=== PATIENT | female | born 1995 | race Hispanic/Latino ===

== ENCOUNTER 2024-04-29 08:47 | Inpatient (IN) | payer BC, SELFPAY ==
[2024-04-29] VITALS (36 sets, daily range): BP systolic 110–164; BP diastolic 55–118; PULSE 78–113; RESP 14–18; TEMP 36.2–37.1; O2SAT 92–100; BMI 34.3
[2024-04-29 08:37] LABS: ROM Internal Control Test YES-OK TO RESULT pt. (Internal QC)
[2024-04-29 08:40] LABS: ROM Patient Test POSITIVE (Negative); Record Kit Lot#, ROM+ K1866
[2024-04-29] MEDS: Lactated Ringers 1,000 ML 50 ML IV (09:20)
[2024-04-29 09:38] LABS: Absolute Lymphocyte Count 2.12 X10^3/uL (0.83-4.51); Absolute Neutrophil Count 11.2 X10^3/uL (2.0-7.7); Basophil# 0.06 X10^3/uL; Basophil% 0.4 % (0-1); Eosinophil# 0.08 X10^3/uL; Eosinophils% 0.5 % (0-5); Hematocrit 40.4 % (37-47); Hemoglobin 13.6 g/dL (12.0-15.0); Lymphocyte # 2.12 X10^3/ul (0.83-4.51); Lymphocyte % 14.5 % (19-41); Mean Corp Hgb Conc 33.7 g/dL (32-36); Mean Corpuscular Volume 89.2 fL (81-99); Mean Platelet Vol. 10.6 fl (6.2-12.0); Monocyte# 1.04 X10^3/uL; Monocyte% 7.1 % (0-10); NRBC Flagged by Analyzer 0 % (0-5); Neutrophil # 11.15 X10^3/uL (2.7-7.7); Neutrophil % 76.4 % (47-70); Platelet Count 236 K/mm3 (150-450); RBC Distribution Width CV 13.5 % (11.6-14.6); RBC Distribution Width SD 43.9 fl (35.1-43.9); Red Blood Count 4.53 M/mm3 (4.2-5.4); White Blood Count 14.6 K/mm3 (4.4-11.0)
--- NOTE | 2024-04-29 09:38 | PCM.HP.OB ---
HPI - General General Date of Admission: 04/29/24 HPI Narrative MADHURI OTTO, is a 29 F who presents at 40w3d with SROM in active labor. Maternal Data Information [facility] Calculator Estimated Delivery Date Method Current WG Current Estimate 04/26/24 Manual 40w 3d PFSH PFSH Home Medications ?Medication ?Instructions ?Recorded ?Last Taken ?Type aspirin 81 mg tablet,delayed 81 mg PO DAILY 04/29/24 04/28/24 08:00 History release (Adult Low Dose Aspirin) 81 mg vits no.130-ferrous fum 1 tab PO DAILY 04/29/24 04/28/24 08:00 History 27 mg iron-folic acid 800 mcg 1 TAB tablet ( Vitamin) Allergy/AdvReac Type Severity Reaction Status Date / Time No Known Allergies Allergy Verified 04/29/24 08:04 Social History Smoking Status: Never smoker History Elective abortions Hx Para 0 Spontaneous abortions Hx # Term Pregnancies Ectopic pregnancies Hx # Pregnancies Multiple births # of living children NST FHR Rate Baby A Baseline: 130 Variability:: Moderate Accelerations:: 15 x 15 Decelerations:: None FHR Category:: Category I Uterine Activity:: Every 2-3 minutes ROS Constitutional Constitutional: Reports systems reviewed and no addt'l complaints, except as documented; Denies headache(s) Eyes Eyes: Denies acute decrease in peripheral vision, blurry vision or change in vision ENT HEENT: Reports systems reviewed and no addt'l complaints, except as documented Cardiovascular Cardiovascular: Denies chest pain or dizziness Respiratory/Chest Respiratory/Chest: Denies cough, dyspnea, dyspnea on exertion, shortness of breath at rest or shortness of breath with exertion Gastrointestinal Gastrointestinal: Denies abdominal pain, diarrhea, nausea or vomiting Genitourinary Genitourinary: Denies abdominal discomfort Musculoskeletal Musculoskeletal: Denies limited range of motion Integumentary Integumentary: Reports systems reviewed and no addt'l complaints, except as documented Neurologic Neurologic: Reports systems reviewed and no addt'l complaints, except as documented Psychiatric Psychiatric: Reports systems reviewed and no addt'l complaints, except as documented Endocrine Endocrinology: Reports systems reviewed and no addt'l complaints, except as documented Hematologic/Lymphatic Hematologic/Lymphatic: Reports systems reviewed and no addt'l complaints, except as documented Allergic/Immunologic Allergic/Immunologic: Reports systems reviewed and no addt'l complaints, except as documented Vital Signs Vital Signs Vital Signs: 04/29/24 08:12 04/29/24 08:12 04/29/24 08:12 Temperature Temperature Source Temporal Pulse Rate 90 Respiratory Rate Blood Pressure 121/78 H BP Systolic 121 BP Diastolic 78 04/29/24 08:12 04/29/24 08:12 Temperature 97.6 F L Temperature Source Pulse Rate Respiratory Rate 18 Blood Pressure BP Systolic BP Diastolic Weight Weight: 199 lb 15.348 oz Body Mass Index (BMI) 34.3 Physical Exam Const alert and oriented x3 General Appearance: cooperative Orientation / Consciousness: awake, oriented to person, oriented to place and oriented to time Exam Limitations: no limitations HEENT normocephalic Head and Scalp: normal to inspection, normocephalic and atraumatic Face and Sinus: normal facial exam Eyes General Eye: normal appearance of both eyes Neck full ROM Chest Chest: symmetrical chest wall rise Resp normal respiratory effort and normal air movement Auscultation: clear to auscultation bilaterally Cardio regular rate, regular rhythm, S1 normal heart sound, S2 normal heart sound, no murmurs, no rub, no gallops and no clicks GI normal to inspection, nondistended, normoactive bowel sounds and non-tender appearance of the vagina normal Narrative: 4/70/-1, AROM forebag small amount of clear fluid Bladder / Kidney Exam: no CVA tenderness Back/Spine normal ROM Extremity normal to inspection and full ROM Skin no rashes or lesions noted Neuro oriented x3, CN's II-XII intact bilaterally and moves all extremities Sensorium / Orientation: awake, alert and oriented to person Motor Exam: clonus absent Deep Tendon Reflexes: Rt Patellar (L4): 2+ and Lt Patellar (L4): 2+ Labs Labs Labs: Blood Type B POSITIVE Antibody Screen NEGATIVE Hct 40.4 % (37-47) Hgb 13.6 g/dL (12.0-15.0) Syphilis Total Ab Non-reactive GBS negative RPR nonreactive HIV negative HepC negative HBsAG negative Rubella immune B positive GC/CT negative Assessment & Plan (1) SROM (spontaneous rupture of membranes): (2) 40 weeks gestation of : (3) Active labor at term: (4) Language barrier: PLAN: Plan 1) Admit to labor and delivery 2) Routine labs 3) Continuous EFM 4) Pain management upon request 5) collaborative physician and notified of patient status, above assessment, and plan.
[2024-04-29] MEDS: fentaNYL 100 MCG/2 ML Ampul IV (10:21)
[2024-04-29 10:52] LABS: Syphilis Antibodies Non-reactive
[2024-04-29] MEDS: fentaNYL-bupivacaine (epidural) 100 ML BAG EPIDURAL ×2 (16:01→20:26)
[2024-04-29] MEDS: Lactated Ringers 1,000 ML 200 ML IV ×2 (16:06→20:43)
[2024-04-29] MEDS: Oxytocin 15 Units/NS 250ml 15 UNITS/250 ML IV.SOLN 2 UNITS IV (21:25)
[2024-04-29] MEDS: Acetaminophen 500 MG Tablet PO (21:35)
[2024-04-30] VITALS (47 sets, daily range): BP systolic 105–166; BP diastolic 55–84; PULSE 91–121; RESP 16–18; TEMP 36.4–37.2; O2SAT 96–100
[2024-04-30] MEDS: fentaNYL-bupivacaine (epidural) 100 ML BAG EPIDURAL (01:13)
--- NOTE | 2024-04-30 02:54 | EX.PCM.OBRPT ---
Assessment & Plan (1) Language barrier: (2) Vaginal delivery: (3) First degree perineal laceration: (4) Lactating mother: Maternal Data Information KYAW Calculator Estimated Delivery Date Method Current WG Current Estimate 04/26/24 Manual 40w 4d Vaginal Delivery Maternal Presentation Maternal Presentation: Active Labor and Spontaneous Rupture of Membranes Operative Information Date of Procedure: 04/30/24 Pre-Operative Diagnosis: SROM, active labor at term Post-Operative Diagnosis: , first degree perineal laceration Surgery / Procedure Performed: Spontaneous Vaginal Delivery Type of Anesthesia: Epidural Estimated Blood Loss: 400ml Time of Delivery: 02:18 Findings Description of Procedure: Progressed to complete with urge to push. Epidural for pain management. of viable female over first degree perineal laceration.APGARS 8,9 respectively. Infant head delivered with body immediately forthcoming. Placed on maternal abdomen, strong cry. Mouth and nares suctioned for secretions. Pitocin started for active 3rd stage management. Cord doubly clamped and cut by FOB after pulsations ceased, delayed cord clamping. Placenta delivered intact via dillon, 3 vessel cord intact. Perineum inspected and revealed 1st degree perineal laceration. Repaired with 3.0 vicryl rapide and epidural. Fundus firm and hemostasis achieved. EBL 400ml. Mom and baby stable, planning to breastfeed. Family bonding well. notified of delivery. Presentation: Vertex and JUNE Amniotic Membrane Rupture Type: Spontaneous Amniotic Fluid Description: Clear Placental Delivery Description: Spontaneous and Manual Removal (Placenta present through cervical os into vagina, not fully forthcoming. Manual removal of remainder of placenta) Placenta Disposition: [facility] Cord Vessel Description: 3 Vessels Cord Entanglement: None Cord Gases: ABG and VBG A Gender: Female (1 minute): 8 (5 minute): 9 Delayed Cord Clamping: Yes Post Vaginal Delivery Medications Given After Delivery: IV Pitocin Episiotomy Description: None Laceration: Perineal Extension/lac and 1st degree Complication Complications: None
[2024-04-30] MEDS: Oxytocin 15 Units/NS 250ml 15 UNITS/250 ML IV.SOLN 83 UNITS IV (03:01)
[2024-04-30] MEDS: Methylergonovine 0.2 MG/ML Ampul IM (04:04)
[2024-04-30] MEDS: 0.9% Saline Lock 10 ML Syringe IV (06:07)
[2024-04-30] MEDS: Ibuprofen 600 MG Tablet PO ×2 (15:37→23:14)
[2024-05-01] VITALS (9 sets, daily range): BP systolic 115–137; BP diastolic 63–72; PULSE 84–96; RESP 16; TEMP 36.4–36.6; O2SAT 99
[2024-05-01 06:06] LABS: Absolute Lymphocyte Count 3.44 X10^3/uL (0.83-4.51); Absolute Neutrophil Count 11.6 X10^3/uL (2.0-7.7); Basophil# 0.09 X10^3/uL; Basophil% 0.5 % (0-1); Eosinophil# 0.22 X10^3/uL; Eosinophils% 1.3 % (0-5); Hematocrit 33.9 % (37-47); Hemoglobin 10.9 g/dL (12.0-15.0); Lymphocyte # 3.44 X10^3/ul (0.83-4.51); Lymphocyte % 20.6 % (19-41); Mean Corp Hgb Conc 32.2 g/dL (32-36); Mean Corpuscular Hgb 29.5 pg (27.0-32.0); Mean Corpuscular Volume 91.6 fL (81-99); Mean Platelet Vol. 10.8 fl (6.2-12.0); Monocyte# 1.08 X10^3/uL; Monocyte% 6.5 % (0-10); NRBC Flagged by Analyzer 0 % (0-5); Neutrophil # 11.62 X10^3/uL (2.7-7.7); Neutrophil % 69.8 % (47-70); Platelet Count 219 K/mm3 (150-450); RBC Distribution Width CV 14.1 % (11.6-14.6); White Blood Count 16.7 K/mm3 (4.4-11.0)
[2024-05-01] MEDS: Ibuprofen 600 MG Tablet PO ×2 (07:47→14:24)
--- NOTE | 2024-05-01 08:49 | PN.OBGYN_ITS ---
Subjective Subjective Some pain in her neck from pushing. Average lochia. No other complaints this morning. Objective Data Objective Data Vital Signs: Vital Signs Temp Pulse Resp BP Pulse Ox O2 Del Method 97.6 F L 96 16 115/66 99 Room Air 05/01/24 08:38 05/01/24 08:38 05/01/24 08:38 05/01/24 08:38 04/30/24 15:30 05/01/24 04:57 Oxygen Delivery Method Room Air Weight: 90.7 kg Body Mass Index (BMI) 34.3 Intake & Output: Intake and Output for Last 24 Hours 04/29/24 04/30/24 05/01/24 23:59 23:59 23:59 Intake Total 2424.60 / 2424.60 1427.67 / 1427.67 Output Total 200 / 200 3000 / 3000 Balance 2224.60 / 2224.60 -1572.33 / -1572.33 Lab / Micro Data 05/01/24 05:50 Labs: Laboratory Results - last 24 hr 05/01/24 05:50: WBC 16.7 H, RBC 3.70 L, Hgb 10.9 L, Hct 33.9 L, MCV 91.6, MCH 29.5, MCHC 32.2, RDW Std Deviation 47.0 H, RDW Coeff of Tasha 14.1, Plt Count 219, MPV 10.8, Immature Gran % (Auto) 1.300 H, Neut % (Auto) 69.8, Lymph % (Auto) 20.6, [place] % (Auto) 6.5, Eos % (Auto) 1.3, Baso % (Auto) 0.5, Absolute Neuts (auto) 11.6 H, Absolute Lymphs (auto) 3.44, Nucleated RBC % 0 Physical Exam Const alert and no apparent distress Narrative: Fundus firm, below umbilicus. Assessment & Plan (1) Vaginal delivery: PLAN: day #1 status post vaginal delivery. Patient and are doing well. Likely discharge home tomorrow.
[2024-05-01] MEDS: Acetaminophen 500 MG Tablet 1000 MG PO ×2 (12:03→23:40)
[2024-05-01] MEDS: Senna/Docusate Sodium 1 Tablet PO (14:25)
[2024-05-01] MEDS: cycloBENZAPRine HCl 5 MG TABLET PO ×2 (15:10→23:40)
[2024-05-02] MEDS: Ibuprofen 600 MG Tablet PO ×2 (01:55→08:52)
[2024-05-02 02:02] VITALS: BP 118/68; PULSE 84; RESP 16; TEMP 36.6; O2SAT 100
[2024-05-02 02:04] VITALS: BP 118/68; PULSE 88
[2024-05-02] MEDS: cycloBENZAPRine HCl 5 MG TABLET PO (08:51)
--- NOTE | 2024-05-02 09:07 | PCM.PN.OB ---
Subjective Subjective She reports stable neck pain. Objective Data Objective Data Vital Signs: Vital Signs Temp Pulse Resp BP Pulse Ox O2 Del Method 98 F 88 16 118/68 100 Room Air 05/02/24 02:02 05/02/24 02:04 05/02/24 02:02 05/02/24 02:04 05/02/24 02:02 05/02/24 02:02 Oxygen Delivery Method Room Air Weight: 199 lb 15.348 oz Body Mass Index (BMI) 34.3 Intake & Output: Intake and Output for Last 24 Hours 04/30/24 05/01/24 05/02/24 23:59 23:59 23:59 Intake Total 1427.67 / 1427.67 Output Total 3000 / 3000 Balance -1572.33 / -1572.33 Lab / Micro Data 05/01/24 05:50 Physical Exam Const alert, oriented x3 and no apparent distress HEENT normocephalic GI soft to palpation, non-tender and non-distended GI Narrative: fundus firm, mid & below umbilicus Extremity normal to inspection and no calf tenderness Assessment & Plan (1) Vaginal delivery: COMMENT: PPD#2 PLAN: Plan for d/c home Neck pain - c/w musculoskeletal. Advised on heat, massage & OTC meds. Will send home with flexeril.
--- NOTE | 2024-05-02 09:09 | PCM.DC.SUM ---
Providers Date of Admission: 04/29/24 Primary Care Physician: No Primary Care Phys Reason For Visit: VAG Diagnosis Discharge Diagnosis (1) Vaginal delivery: Status: Acute Code(s): O80 - Encounter for full-term uncomplicated delivery Plan: Plan for d/c home Neck pain - c/w musculoskeletal. Advised on heat, massage & OTC meds. Will send home with flexeril. Medications at Discharge Home Medications vits no.130-ferrous fum 27 mg iron-folic acid 800 mcg tablet ( Vitamin) 1 tab PO DAILY 04/29/24 acetaminophen 500 mg tablet 1,000 mg (2 x 500 mg) PO Q6H PRN PRN Pain 1-10 Or Fever #0 tabs 05/02/24 ibuprofen 600 mg tablet 600 mg PO Q6H PRN PRN Pain Score 1-10 #0 tabs 05/02/24 Hospital Course Operations None Summary of Care Provided Minutes Spent on Discharge: 15 Weight / BMI Weight Weight: 199 lb 15.348 oz Body Mass Index (BMI) 34.3 ABG / Lab / Microbiology Data 05/01/24 05:50 D/C Instructions Discharge Diet: No restrictions Discharge Activity: May Shower May resume sexual activity in: 6 weeks Weight Bearing Status: Weight bearing as tolerated Call your doctor if you observe: Fever of 101 or Higher, Coldness, Increased Pain, Change in Color, Inability to urinate, Inability to have a bowel movement, Using more than 1 pad per hour, Shortness of breath, Dizziness, Fainting spells, Chest pain, Increased palpitations (irregular heartbeat), Calf discomfort and Uncontrolled pain Please Follow Up With: Savanah Licona CNM When: Follow up in 2 and 6 weeks for visits. Meaningful Use Info Meaningful Use Meaningful Use Diagnoses (Choose all that apply): None applicable Ischemic Stroke Statin Dosing Therapy Reference: STATIN DOSE THERAPY REFERENCE: * Patients > 75 years receive moderate or high dose statin therapy. * Patients 75 years or YOUNGER should receive HIGH intensity statin dose unless contraindicated. You will be required to document reason for non-treatment if statin daily dose does not meet guidelines. HIGH DOSE STATIN THERAPY DAILY Atorvastatin > than or = to 40 mg Rosuvastatin > than or = to 20 mg Amlodipine + Atorvastatin > than or = to 2.5/40 mg Ezetimibe + Simvastatin 10/80 mg Simvastatin 80mg Discharge Plan Admission Admit Date/Time: 04/29/24 08:47 Primary Reason for Your Visit: Vaginal delivery Attending Provider: Becca Loya Primary Care Provider: Care Physician,Jossie Primary Discharge Orders/Prescriptions Prescriptions: New acetaminophen 500 mg Tablet 1,000 mg PO Q6H PRN PRN (Reason: Pain 1-10 Or Fever) Qty: 0 0RF ibuprofen 600 mg Tablet 600 mg PO Q6H PRN PRN (Reason: Pain Score 1-10) Qty: 0 0RF Continued Vitamin 27 mg iron- 800 mcg tablet 1 tab PO DAILY Discontinued aspirin [Adult Low Dose Aspirin] 81 mg tablet,delayed release (DR/EC) 81 mg PO DAILY Referrals / Follow Up: Care Physician,No Primary [Primary Care Provider] - Disposition Disposition (needs filled in before D/C Order can be placed): Home, Self Care
[2024-05-02 09:21] VITALS: BP 126/65; PULSE 97
[2024-05-02 09:24] VITALS: BP 126/65; PULSE 97; RESP 16; TEMP 36.1
--- NOTE | 2024-05-08 14:55 | NURSING ---
Follow up phone call made. Patient states she is doing very well, only minimal bleeding. States she does not have any pain, headaches, or visual changes. Patient states Junie is nursing well every 2-3 hours and having lots of wet and dirty diapers. Patient has not scheduled a follow up appointment yet for infant, encouraged to call today to get follow up appointment with PCP, states understanding.
== END 2024-05-02 12:20 | disposition home or self-care (01) | DRG 807 ==
PROVIDERS: Admitting Provider Advanced Practice Midwife; Referring Provider Advanced Practice Midwife; Visit Provider Advanced Practice Midwife
DX: O42.92 Full-term premature rupture of membranes, unspecified as to length of time between rupture and onset of labor (principal); Z37.0 Single live birth; M54.2 Cervicalgia; O99.893 Other specified diseases and conditions complicating puerperium; O70.0 First degree perineal laceration during delivery; Z3A.40 40 weeks gestation of pregnancy
CPT/HCPCS: 59025; 59050; 84112; 85025; 86780; 86850; 86900; 86901; 99221; J7120; A4216; G0378